=== PATIENT | female | born 1975 | race Two or more races ===

== ENCOUNTER 2018-02-09 07:26 | Emergency (ER) | payer OTHER ==
[2018-02-09 07:35] VITALS: BMI 31.2
[2018-02-09] MEDS ORDERED: ALBUTEROL SO4 2.5/IPRATROPIUM 0.5 INH SOL 3 ML VIAL.NEB. NEB ONE ×2 (07:59→08:04)
--- NOTE | 2018-02-09 07:59 | PDOC ---
History of Present Illness - General Chief Complaint: Shortness of Breath Stated Complaint: SOB Time Seen by Provider: 02/09/18 07:39 - History of Present Illness Initial Comments: 02/09/18 07:57 42 y F PMH GERD, tummy tuck and breast implants (2007), current cigarette smoker (approximately 1 pack/day), accompanied by spouse, who presents w/ persistent [id number] for approximately 1 week. Pt also endorses fevers (measures at home 101), chills, body aches, SOB, wheezing, pleuritic cp, productive cough (white-brown sputum), MARKHAM, 5-6 episodes vomit (some blood? pt ate tomatoes). Pt took some mucinex but did not help. Pt says 3 mo ago wasalso sick w/ a cold/cough. 4mo ago traveled to [facility]. Denies urinary sxs, diarrhea, blood in stools, hx STDs, hx clots, leg swelling, leg pain, sick contacts. No OCPs. did not take motrin this morning Meds: omeprazole, IUD mirena Allergies: NKDA Past Surgical History: Liposuction Social History: She admits to tobacco use (approximately 1 pack/day 20 yrs). She admits to social ETOH use. No recreational drug use. Primary Care Physician: Dr. David Chaves [phone] Past History - Past Medical History Allergies/Adverse Reactions: Allergies Allergy/AdvReac Type Severity Reaction Status Date / Time No Known Allergies Allergy Verified 02/09/18 07:33 Home Medications: Ambulatory Orders Albuterol Sulfate Inhaler - [Ventolin HFA Inhaler -] 1 puff IH Q6H #1 inhaler Guaifenesin [Mucinex -] 600 mg PO BID 02/09/18 Levofloxacin [Levaquin] 500 mg PO DAILY 5 Days #5 tablet 02/09/18 Anemia: No Asthma: No Cancer: No Cardiac Disorders: No CVA: No COPD: No CHF: No Dementia: No Diabetes: No GI Disorders: No Disorders: No HTN: No Hypercholesterolemia: No Liver Disease: No Seizures: No Thyroid Disease: No - Surgical History Abdominal Surgery: Yes (LIPOSUCTION, ABDOMINOPLASTY) Appendectomy: No Cardiac Surgery: No Cholecystectomy: No Lung Surgery: No Neurologic Surgery: No Orthopedic Surgery: No - Immunization History Immunization Up to Date: Yes - Suicide/Smoking/Psychosocial Hx Smoking History: Never smoked Have you smoked in the past 12 months: Yes Number of Cigarettes Smoked Daily: 10 'Breaking Loose' booklet given: 03/06/14 Hx Alcohol Use: No Drug/Substance Use Hx: No Substance Use Type: None Hx Substance Use Treatment: No Review of Systems - Review of Systems Constitutional: Yes: See HPI HEENTM: Yes: See HPI Respiratory: Yes: See HPI Cardiac (ROS): Yes: See HPI ABD/GI: Yes: See HPI : Yes: See HPI Musculoskeletal: Yes: See HPI Integumentary: Yes: See HPI Neurological: Yes: See HPI Endocrine: Yes: See HPI Hematologic/Lymphatic: Yes: See HPI *Physical Exam - Vital Signs Last Vital Signs Temp Pulse Resp BP Pulse Ox 98.5 F 73 16 134/65 99 02/09/18 07:33 02/09/18 07:33 02/09/18 07:33 02/09/18 07:33 02/09/18 07:33 - Physical Exam Comments: 02/09/18 08:17 General: Well-nourished, NAD HEENT: NCAT, MMM Neck: Supple, no lymphadenopathy Respiratory: mild wheeze cardio: RRR S1 S2 no m/r/g Abdomen: Soft, ND, TTP suprapubic +BS Extremities: radial 2+ b/l. Warm, dry, no cyanosis, edema, clubbing or calf tenderness Skin: intact. no rashes Neuro: Alert and oriented x3, nonfocal exam, grossly intact Psych: Normal mood and affect Medical Decision Making - Medical Decision Making 02/09/18 08:19 42 y F PMH GERD, tummy tuck and breast implants (2007), current cigarette smoker (approximately 1 pack/day), accompanied by spouse, who presents w/ persistent flu and [id number] for approximately 1 week. vitals wnl, TTP suprapubic Ddx: viral URI, flu, PNA, bronchitis, UTI -Duoneb -UA, Ucx -flu swab -CXR -preg test -counseled and encouraged pt about smoking cessation 02/09/18 10:02 preg neg CXR wnl flu neg UA leuk est 2+, WBC 5 will tx w/ levaquin to cover for bronchitis and possible UTI 02/09/18 10:27 will prescribe levaquin (5 days) and albuterol Inhaler pt is stable and ready for discharge *DC/Admit/Observation/Transfer Diagnosis at time of Disposition: Bronchitis - Discharge Dispostion Disposition: HOME Condition at time of disposition: Stable Decision to Admit order: No - Prescriptions Prescriptions: Albuterol Sulfate Inhaler - [Ventolin HFA Inhaler -] 1 puff IH Q6H #1 inhaler Levofloxacin [Levaquin] 500 mg PO DAILY 5 Days #5 tablet - Referrals Referrals: David Chaves MD [Non Staff, Medical] - 1 week - Patient Instructions Printed Discharge Instructions: Smoking Cessation Drugs: Nicotine Replacement Products, Acute Bronchitis, DI for Acute Bronchitis, Nicotine Replacement Therapy for Smoking Cessation During , Positive Mental Health Changes Found After Smoking Cessation, Smoking Cessation Additional Instructions: you came in for cough and fever and were found to have bronchitis we gave you nebulizer and antibiotics We will prescribe you Levaquin (antibiotic) and albuterol inhaler to treat your symptoms We discussed the importance of quitting smoking and some of the methods used to help with quitting Please continue this discussion with your primary care physician to help make a plan to quit Please follow up with your primary care physician within 1 week If you experience any worsening of cough, shortness of breath, fevers, chills, chest pain, abdominal pain, pain with urination, please call 911 or come back to the ER - Post Discharge Activity
[2018-02-09 08:57] VITALS: BP 125/63; PULSE 67; TEMP 98.2
[2018-02-09 09:13] LABS: URINE APPEARANCE SLCLOUDY; URINE BILIRUBIN NEGATIVE (<2.0 mg/dL); URINE COLOR LTYELLOW; URINE GLUCOSE (UA) NEGATIVE (NEGATIVE); URINE KETONE NEGATIVE (NEGATIVE); URINE LEUK ESTERASE 2+ (NEGATIVE); URINE NITRITE NEGATIVE (NEGATIVE); URINE PROTEIN NEGATIVE (NEGATIVE); URINE UROBILINOGEN NEGATIVE mg/dL (0.2-1.0)
[2018-02-09 09:15] LABS: EPI CELLS RARE /HPF (FEW); URINE BACTERIA RARE /hpf (NONE SEEN); URINE MUCUS RARE
--- NOTE | 2018-02-09 10:04 | PDOC ---
Attending Attestation - Resident Resident Name: Thang Whiteside - ED Attending Attestation I have performed the following: I have examined & evaluated the patient, The case was reviewed & discussed with the resident, I agree w/resident's findings & plan, Exceptions are as noted - HPI HPI: 02/09/18 10:00 42 yo F h/o smoking, GERD here with cough myalgia and productive phelgm . brown sputum for one week. pt smokes pack per day. no n/v. has some pain with coughing and breathing. no f/c no leg swelling no h/o pe or dvt. no other complaints. sxs started one week ago. - Physicial Exam PE: 02/09/18 10:02 awake alert lungs with expiratory wheezing at right base, and end expiration anteiror lung wright. abd soft nt nd. ext wwp no edema. no calf tenderness. nuero alert oriented x 3. - Medical Decision Making 02/09/18 10:02 differential influenze, bronchitis, viral syndrome, pneumonia, plan nebs. steroids, due to h/o smoking and sputum production will likley treat with abx for copd/ bronchitis. cxr ua ucg . 02/09/18 10:58 pt cxr negative ua negative. feels better after neb. dc home with levaquin for bronchitis, told to quit smoking. pt denies pluerisy, states has cp only with coughing. dc with inhaler. told to followup with pcp.
== END 2018-02-09 11:37 | disposition home or self-care (01) ==
LOC: JER 07:26
PROC: 3E0F7GC Introduction of Other Therapeutic Substance into Respiratory Tract, Via Natural or Artificial Opening (ICD-10-PCS; principal; 2018-02-09)
DX: J40 Bronchitis, not specified as acute or chronic (principal); K21.9 Gastro-esophageal reflux disease without esophagitis; F17.210 Nicotine dependence, cigarettes, uncomplicated
CPT/HCPCS: 71046-TC-FY; 81003; 81015; 84703; 87086; 87804; 94640; 99282-25; J7620

== ENCOUNTER 2018-11-05 05:15 | Emergency (ER) | payer OTHER ==
--- NOTE | 2018-11-05 05:33 | PDOC ---
History of Present Illness - General Stated Complaint: S.O.B. Time Seen by Provider: 11/05/18 05:33 History Source: Patient Exam Limitations: No Limitations - History of Present Illness Initial Comments: Pt is a 42 yo F, with PMH of seasonal allergies (gets allergy shots every week) , who is presenting with nasal congestion worse from her baseline x1 day. Pt states she has tried her medicated nasal sprays with minimal relief. Pt has had clear nasal discharge, but came to the ER because her congestion was worse and she had "trouble breathing through her nose when lying flat". Pt has a f/u appt with her ENT/emergency crew supervisor at 9 am today. Pt denies any fevers/chills, headache, vision changes, purulent nasal drainage or cough, syncope, chest pain, palpitations, SOB, nausea/vomiting, abdominal pain, urinary symptoms, diarrhea/ constipation, or leg swelling. Allergies: NKDA PCP: Evaristo Senior Data Scientist/ENT: Dr. Sargent Social: Pt quit smoking cigarettes a few months ago. Pt denies any alcohol or drug use. Pt denies any recent travel or sick contacts. Surgical: abdominoplasty, breast implants. Family: no relevant history. 11/05/18 05:58 Past History - Travel Traveled outside of the country in the last 30 days: No Close contact w/someone who was outside of country & ill: No - Past Medical History Allergies/Adverse Reactions: Allergies Allergy/AdvReac Type Severity Reaction Status Date / Time No Known Allergies Allergy Verified 11/05/18 05:37 Home Medications: Ambulatory Orders Albuterol Sulfate Inhaler - [Ventolin HFA Inhaler -] 1 puff IH Q6H #1 inhaler Guaifenesin [Mucinex -] 600 mg PO BID 02/09/18 Levofloxacin [Levaquin] 500 mg PO DAILY 5 Days #5 tablet 02/09/18 Anemia: No Asthma: No Cancer: No Cardiac Disorders: No CVA: No COPD: No CHF: No Dementia: No Diabetes: No GI Disorders: No Disorders: No HTN: No Hypercholesterolemia: No Liver Disease: No Seizures: No Thyroid Disease: No - Surgical History Abdominal Surgery: Yes (LIPOSUCTION, ABDOMINOPLASTY) Appendectomy: No Cardiac Surgery: No Cholecystectomy: No Lung Surgery: No Neurologic Surgery: No Orthopedic Surgery: No - Immunization History Immunization Up to Date: Yes - Suicide/Smoking/Psychosocial Hx Smoking History: Current every day smoker Have you smoked in the past 12 months: Yes Number of Cigarettes Smoked Daily: 10 'Breaking Loose' booklet given: 02/09/18 Hx Alcohol Use: No Drug/Substance Use Hx: No Substance Use Type: None Hx Substance Use Treatment: No Review of Systems - Review of Systems Able to Perform ROS?: Yes Is the patient limited Bel[place]ian proficient: No Constitutional: Yes: Weight Stable. No: Chills, Diaphoresis, Fever, Loss of Appetite, Malaise, Weakness HEENTM: Yes: Nose Congestion. No: Blurred Vision, Double Vision, Nose Pain, Tinnitus, Nose Bleeding, Throat Pain, Throat Swelling, Mouth Pain, Difficulty Swallowing Respiratory: No: Cough, Orthopnea, Shortness of Breath Cardiac (ROS): No: Chest Pain, Edema, Irregular Heart Rate, Lightheadedness, Palpitations, Syncope, Chest Tightness ABD/GI: No: Constipated, Diarrhea, Nausea, Poor Appetite, Vomiting, Abdominal cramping : No: Burning, Dysuria, Pain, Urgency Musculoskeletal: No: Back Pain, Joint Pain, Muscle Pain, Muscle Weakness Integumentary: No: Erythema, Pruritus, Rash Neurological: Yes: Headache (mild facial pressure). No: Numbness, Paresthesia, Weakness, Unsteady Gait, Dizziness Psychiatric: No: Sleep Pattern Change, Change in Appetite Endocrine: No: Increased Urine, Change in Weight Hematologic/Lymphatic: No: Anemia, Blood Clots, Easy Bleeding, Easy Bruising All Other Systems: Reviewed and Negative *Physical Exam - Physical Exam Comments: Vitals stable, pt afebrile. Pt in NAD, normal body habitus. Pt alert and oriented x3. acid cutter generally intact, muscular strength and sensation intact. No midline spinal tenderness, step-offs, or crepitus. Head normocephalic, atraumatic. Eyes PERRLA, EOMI. +allergic shiners under both eyes. Oropharynx without erythema or exudates, no LAD b/l. +nasal congestion, boggy nasal turbinates, no active drainage or facial TTP. Hearing intact, TMs clear without bulging. Clear heart sounds, S1/S2, no JVD, b/l pedal edema, or heart murmur. Clear lung sounds, no respiratory distress, wheezes, crackles, or accessory muscle use. No abdominal or CVA tenderness to palpation, no rebound, no guarding. Abdomen soft, non-distended, and with normoactive bowel sounds. Skin without jaundice or rash. 11/05/18 05:52 Medical Decision Making - Medical Decision Making Pt was seen at bedside, also will be seen by attending Dr. Quinn. Pt presenting with nasal congestion worse from her baseline x1 day. Pt states she has tried her medicated nasal sprays with minimal relief. Pt has had clear nasal discharge , but came to the ER because her congestion was worse and she had "trouble breathing through her nose when lying flat". Pt has a f/u appt with her ENT/ emergency crew supervisor at 9 am today. Pt denies any fevers/chills, headache, vision changes, purulent nasal drainage or cough, syncope, chest pain, palpitations, SOB, nausea /vomiting, abdominal pain, urinary symptoms, diarrhea/constipation, or leg swelling. Providing 650 mg PO tylenol and saline nasal flush. Pt can be discharged to home with follow-up. Pt advised to follow-up with PCP in 1-2 days and to keep her ENT/emergency crew supervisor appointment today. Strict return precautions provided with pt understanding. 11/05/18 05:54 *DC/Admit/Observation/Transfer Diagnosis at time of Disposition: Nasal congestion - Discharge Dispostion Disposition: HOME Condition at time of disposition: Good Decision to Admit order: No - Referrals Referrals: Sydney Loera [Primary Care Provider] - Yosvany Sargent MD [Non Staff, Medical] - - Patient Instructions Printed Discharge Instructions: DI for Nasal Congestion Additional Instructions: You were seen in the ER today for nasal congestion, which we provided you with tylenol and nasal saline spray. Please follow-up with your primary care doctor and ENT/emergency crew supervisor (Dr. Sargent) at your scheduled appointments to discuss your visit and make sure your symptoms have improved. Please return to the ER if you have any worsening facial pain, drainage from your nose that starts to become yellow or green, shortness of breath, development of fevers or chills, loss of consciousness, inability to tolerate food or fluids, or any other concerns. - Post Discharge Activity
[2018-11-05 05:41] VITALS: BP 112/85; PULSE 61; TEMP 98.5
[2018-11-05] MEDS ORDERED: SODIUM CHLORIDE FOR INHALATION 3 ML VIAL.NEB IH ONE (05:47)
[2018-11-05] MEDS ORDERED: ACETAMINOPHEN 325 MG TABLET (FP) PO ONE (05:47)
[2018-11-05] MEDS ORDERED: ACETAMINOPHEN 325 MG TABLET (FP) ONE (05:49)
--- NOTE | 2018-11-05 05:54 | PDOC ---
Attending Attestation - Resident Resident Name: Lana Robles - ED Attending Attestation I have performed the following: I have examined & evaluated the patient, The case was reviewed & discussed with the resident, I agree w/resident's findings & plan, Exceptions are as noted - HPI HPI: 11/05/18 05:50 42 F with h/o seasonal allergies, GERD, presenting to ED with nasal congestion. Pt states this is a chronic problem. She currently uses 2 nasal decongestant sprays, prescribed to her by her ENT. However, she states that she used these today but without relief. Denies CP/SOB. Denies F/C. Pt has appointment with her ENT this morning at 9AM. - Physicial Exam PE: 11/05/18 05:53 GENERAL: Awake, alert, and fully oriented, in no acute distress. HEAD: No signs of trauma EYES: PERRLA, EOMI, sclera anicteric, conjunctiva clear ENT: Auricles normal inspection, hearing grossly normal, nares patent, oropharynx clear without exudates. Moist mucosa NECK: Nontender, no stepoffs, Normal ROM, supple, no lymphadenopathy, JVD, or masses LUNGS: Breath sounds equal, clear to auscultation bilaterally. No wheezes, and no crackles HEART: Regular rate and rhythm, normal S1 and S2, no murmurs, rubs or gallops ABDOMEN: Soft, nontender, normoactive bowel sounds. No guarding, no rebound. No masses EXTREMITIES: Normal range of motion, no edema. No clubbing or cyanosis. No cords, erythema, or tenderness NEUROLOGICAL: Cranial nerves II through XII intact. 5/5 strength and sensation in all extremities, Normal speech, normal gait, normal cerebellar function SKIN: Warm, Dry, normal turgor, no rashes or lesions noted. - Medical Decision Making 11/05/18 05:53 42 F with nasal congestion, chronic. Lungs clear, vitals normal. - Saline neb - F/u ENT today as scheduled Pt is well appearing, with normal vitals. Clinically stable for DC at this time. I discussed the physical exam findings, ancillary test results and final diagnoses with the patient. I answered all of the patient's questions. The patient was satisfied with the care received and felt comfortable with the discharge plan and treatment plan. The patient agrees to follow up with the primary care physician within 24-72 hours.
== END 2018-11-05 06:36 | disposition home or self-care (01) ==
LOC: JER 05:15
PROC: 3E0F7GC Introduction of Other Therapeutic Substance into Respiratory Tract, Via Natural or Artificial Opening (ICD-10-PCS; principal; 2018-11-05)
DX: R09.81 Nasal congestion (principal)
CPT/HCPCS: 94640; 99281-25